=== PATIENT | female | born 1980 | race Caucasian/White ===

== ENCOUNTER 2018-08-13 09:34 | Emergency (ER) | payer BC, OTHER ==
[2018-08-13 09:42] VITALS: BP 128/87
--- NOTE | 2018-08-13 09:49 | UC ---
Throat Pain/Nasal Mark HPI - HPI Summary HPI Summary: 37 yo female presents with sore throat for the last 2 days. Last night she began to "lose her voice" and have hoarseness. Has felt warm at times, but has not taken her temperature. She is eating and drinking well, but overall feels some body aches and fatigue. Denies sinus symptoms, cough, SOB, chest pain, or rash. - History of Current Complaint Chief Complaint: UCGeneralIllness Stated Complaint: SORE THROAT,FEVER,FATIGUE Time Seen by Provider: 08/13/18 09:49 Hx Obtained From: Patient Hx Last Menstrual Period: iud Onset/Duration: Gradual Onset Severity: Mild Pain Intensity: 4 Pain Scale Used: 0-10 Numeric - Allergies/Home Medications Allergies/Adverse Reactions: Allergies Allergy/AdvReac Type Severity Reaction Status Date / Time lactose Allergy GI Upset Verified 08/13/18 09:37 levalbuterol [From Xopenex] Allergy facial Verified 08/13/18 09:37 swelling ENVIRONMENTAL/SEASONAL Allergy SNEEZING,CO Uncoded 08/13/18 09:37 NGESTION PMH/Surg Hx/FS Hx/Imm Hx Endocrine History: Thyroid Disease - Surgical History Surgical History: Yes Surgery Procedure, Year, and Place: THYROIDECTOMY/PARATHYROIDECTOMY, [place]. 2004 LAPAROSCOPIC CHOLECYSTECTOMY, [facility] – [place]. 2004 RIGHT ANKLE SURGERY, [facility]. 1998 AND 2000 [facility], [place] - Family History Known Family History: Positive: None - Social History Occupation: Employed Full-time Lives: With Family Alcohol Use: None Substance Use Type: None Smoking Status (MU): Never Smoked Tobacco Have You Smoked in the Last Year: No Review of Systems All Other Systems Reviewed And Are Negative: Yes Constitutional: Positive: Fatigue Skin: Positive: Negative Eyes: Positive: Negative ENT: Positive: Sore Throat Respiratory: Positive: Negative Cardiovascular: Positive: Negative Gastrointestinal: Positive: Negative Neurological: Positive: Negative Psychological: Positive: Negative Physical Exam - Summary Physical Exam Summary: GENERAL: NAD. WDWN. No pain distress. SKIN: No rashes, sores, lesions, or open wounds. HEENT: Head: AT/NC Eyes: EOM intact. Conjunctiva clear without inflammation or discharge. Ears: Hearing grossly normal. TMs intact, no bulging, erythema, or edema. Nose: Nasal mucosa pink and moist. NTTP maxillary and frontal sinus. Throat: Posterior oropharynx without exudates, erythema, or tonsillar enlargement. Uvula midline. Hoarse voice NECK: Supple. Nontender. No lymphadenopathy. CHEST: CTAB. No r/r/w. No accessory muscle use. Breathing comfortably and in no distress. CV: RRR. Without m/r/g. Pulses intact. Cap refill <2seconds NEURO: Alert. PSYCH: Age appropriate behavior. Triage Information Reviewed: Yes Vital Signs: Initial Vital Signs Temp 97.8 F 08/13/18 09:38 Pulse 78 08/13/18 09:38 Resp 16 08/13/18 09:38 BP 128/87 08/13/18 09:38 Pulse Ox 100 08/13/18 09:38 Laboratory Tests 08/13/18 09:52 Group A Strep Rapid Negative Vital Signs Reviewed: Yes Throat Pain/Nasal Course/Dx - Course Course Of Treatment: POC strep negative. Suspect viral laryngitis. Advised to continue to rest and drink fluids. May try tea with honey or warm salt water in addition to lidocaine viscous for discomfort. - Differential Dx/Diagnosis Provider Diagnosis: Laryngitis Discharge - Sign-Out/Discharge Documenting (check all that apply): Patient Departure All imaging exams completed and their final reports reviewed: No Studies - Discharge Plan Condition: Stable Disposition: HOME Prescriptions: Lidocaine 2% VISCOUS* [Xylocaine 2% Viscous*] 15 ml SWISH SWAL Q6H PRN #1 btl PRN Reason: Pain Patient Education Materials: Laryngitis (ED) Referrals: Miguel Ratliff MD [Primary Care Provider] - Additional Instructions: If you develop a fever, shortness of breath, chest pain, new or worsening symptoms - please call your PCP or go to the ED. - Billing Disposition and Condition Condition: STABLE Disposition: Home - Attestation Statements Provider Attestation: Per institutional requirements, I have reviewed the chart, however, I was not consulted specifically or made aware of this patient by the midlevel provider. I did not personally evaluate, interact with , or disposition this patient.
== END 2018-08-13 10:23 | disposition home or self-care (01) ==
LOC: UCEAST 09:34
DX: J04.0 Acute laryngitis (principal); Z88.8 Allergy status to other drugs, medicaments and biological substances; Z91.011 Allergy to milk products; Z91.09 Other allergy status, other than to drugs and biological substances
CPT/HCPCS: 87651; 99212; G0463